=== PATIENT | female | born 1950 | race Caucasian/White ===

== ENCOUNTER 2017-08-29 04:58 | Inpatient (IN) | payer OTHER ==
[2017-07-29 10:47] VITALS: BMI 26.0
--- NOTE | 2017-07-29 11:03 | PAT Medication Instructions ---
Service Date Jul 29, 2017. Current Home Medication List Hydrocodone-Acetaminophen (Hydrocodone Bitartrate/AC 10-325 mg), 1 TAB PO Q4H PRN for RN Losartan Potassium (Cozaar), 50 MG PO QPM Medication Instructions For Your Scheduled Surgery - Take the following medications the morning of surgery with a sip of water: Hydrocodone-Acetaminophen (Hydrocodone Bitartrate/AC 10-325 mg), 1 TAB PO Q4H PRN (if needed, can be taken up to four hours before surgery) - Take the following medications as scheduled the night before surgery: Hydrocodone-Acetaminophen (Hydrocodone Bitartrate/AC 10-325 mg), 1 TAB PO Q4H PRN (if needed) Losartan Potassium (Cozaar), 50 MG PO QPM If you have any questions please call us at [phone] or [phone] or [phone]
--- NOTE | 2017-07-29 11:51 | DIAGNOSTIC IMAGING REPORT ---
CHEST 2 VIEWS ROUTINE CLINICAL HISTORY: Preoperative chest COMPARISON STUDY: No previous studies for comparison. FINDINGS: The cardiac and mediastinal contours are normal. There is no evidence of focal pulmonary consolidation. There is no evidence of failure. No pleural effusions are visualized.[ A lobulated retroxiphoid opacity on the lateral view is felt to represent a summation IMPRESSION: No active disease in the chest. Electronically signed by: Angel Lim M.D. 07/29/2017 11:50 AM Dictated Date/Time: 07/29/2017 11:49 AM
[2017-07-29 12:06] LABS: BASO % 0.5 %; BASO ABS # 0.06 K/uL (0-0.2); EOS % 2.2 %; EOS ABS # 0.26 K/uL (0-0.5); HEMOGLOBIN 13.9 g/dL (12.0-16.0); IG# 0.03 K/uL (0.00-0.02); LYMPH % 30.1 %; MEAN CELL VOLUME 96.1 fL (80-100); MEAN CORPUSCULAR HEMOGLOBIN 31.8 pg (25-34); MEAN CORPUSCULAR HGB CONC 33.1 g/dl (32-36); MEAN PLATELET VOLUME 9.3 fL (7.4-10.4); MONO % 7.1 %; MONO ABS # 0.85 K/uL (0.11-0.59); NEUT % 59.8 %; NEUT ABS # 7.16 K/uL (1.4-6.5); PLATELET COUNT 345 K/uL (130-400); RED CELL DISTRIBUTION WIDTH CV 13.6 % (11.5-14.5); RED CELL DISTRIBUTION WIDTH SD 48.2 fL (36.4-46.3); WHITE BLOOD COUNT 11.96 K/uL (4.8-10.8)
[2017-07-29 12:27] LABS: PTT PATIENT 25.4 SECONDS (21.0-31.0)
--- NOTE | 2017-08-28 06:55 | HISTORY & PHYSICAL EXAMINATION ---
DATE OF ADMISSION: 08/29/2017 CHIEF COMPLAINT: Primary osteoarthritis of the left hip. HISTORY OF PRESENT ILLNESS: Antonia is a pleasant 66-year-old female who has been having a several year history of left hip pain. X-rays and clinical examination have been diagnostic for primary osteoarthritis of the left hip. She has failed extensive conservative treatment including multiple injections and over the counter anti-inflammatories. She has elected to proceed with an anterior left total hip arthroplasty. PAST MEDICAL HISTORY: Significant for hypertension and osteoarthritis. PAST SURGICAL HISTORY: Denies. ALLERGIES: None. CURRENT MEDICATIONS: Include losartan and hydrocodone. FAMILY HISTORY: Significant for heart disease. SOCIAL HISTORY: She is . Never drinks. Denies any tobacco, alcohol or IV drug use. She has 4 kids. REVIEW OF SYSTEMS: She complains of left hip pain. All other pertinent review of systems are negative. PHYSICAL EXAMINATION: GENERAL: She is awake, alert and orient x3. She is in no apparent distress. She is very pleasant. HEENT: Pupils are equal, round, reactive to light. Extraocular movements are intact. Oral mucosa is pink and moist. HEART: The heart is regular rate per radial pulse. LUNGS: Symmetrically bilaterally with no audible breath sounds. ABDOMEN: Soft, nontender, nondistended. MUSCULOSKELETAL: On physical examination of her hip, she ambulates independently. Her leg lengths are essentially equal. She has active dorsiflexion and plantarflexion of her ankle. She has very limited range of motion with flexion at 90 degrees, 10 degrees of internal rotation and 20 degrees of external rotation. She has significant reproducible groin pain at end ranges of motion. IMAGING: X-rays of the right hip do show advanced osteoarthritis with complete joint space collapse. There is sclerotic changes over the acetabulum. There is bone on bone arthritis and osteophyte formation. IMPRESSION: Primary osteoarthritis of the left hip. PLAN: We will proceed with an anterior left total hip arthroplasty. Postoperatively, she will be started on aspirin for DVT prophylaxis and kept overnight in the hospital for postop medical management.
[2017-08-29] VITALS (10 sets, daily range): BP systolic 132–183; BP diastolic 78–94; PULSE 59–87; TEMP 36.3–37; O2SAT 92–100; Ht 144.8 cm; Wt 55.7 kg
[~2017-08-29] VITALS: Ht 144.8 cm; Wt 55.7 kg
[~2017-08-29 04:58] MED LIST: HYDR-5806 PO; LOSA50TA6 PO
[2017-08-29] MEDS ORDERED: LACTATED RINGER'S 1000ML 500 ML IV SCH (06:00)
[2017-08-29] MEDS ORDERED: CEFAZOLIN 2000MG IV PUSH 15 ML IV SCH (06:00)
[2017-08-29] MEDS ORDERED: FAMOTIDINE 20 MG TAB PO SCH (06:00)
[2017-08-29] MEDS ORDERED: ACETAMINOPHEN 500 MG TAB PO SCH (06:00)
[2017-08-29] MEDS ORDERED: LACTATED RINGER'S 1000ML 1,000 ML IV SCH ×2 (06:00)
[2017-08-29] MEDS ORDERED: ROPIVACAINE 5MG/ML 30 ML 150 MG, BUPIVACAINE 0.5% MPF INJ 30 ML, EpINEphrine HCL INJ 0.... INFIL SCH ×8 (06:00)
[2017-08-29] MEDS ORDERED: GABAPENTIN 300 MG CAP PO SCH (06:00)
[2017-08-29] MEDS ORDERED: BACITRACIN 50000 UNIT VIAL ONE (06:27)
[2017-08-29] MEDS ORDERED: ORTHO JOINT ANESTHETIC ONE (06:27)
[2017-08-29] MEDS ORDERED: BUPIVACAINE 0.5 % 5 MG/1 ML PF 10ML VIAL ONE (06:29)
[2017-08-29] MEDS: TRANEXAMIC ACID INJ 1,000 MG x 2 Bags IV SCH ×4 (06:30→06:43)
[2017-08-29] MEDS ORDERED: MIDAZOLAM HCL 1 MG/ML 2ML VIAL ONE (06:37)
--- NOTE | 2017-08-29 06:53 | History & Physical Bridge Note ---
H&P Re-Evaluation Bridge Note: I have examined the patient, reviewed the History & Physical and in the interval since the performance of the History & Physical I have noted the following changes of clinical significance: No changes noted
[2017-08-29] MEDS ORDERED: PHENYLEPHRINE 100MCG/ML 5ML SYR IV PRN (07:00)
[2017-08-29] MEDS ORDERED: ONDANSETRON INJ 2 MG/ML 2 ML VIAL IV PRN ×2 (07:00→09:15)
[2017-08-29] MEDS ORDERED: EpHEDrine SULFATE INJ 50 MG/ML AMP IV PRN (07:00)
[2017-08-29] MEDS ORDERED: PROMETHAZINE HCL INJ 12.5 MG in SODIUM CHLORIDE 0.9% 50ML 50 ML IV PRN (07:00)
[2017-08-29] MEDS ORDERED: HYDROmorphone INJ 1 MG/ML SYR IV PRN (07:00)
[2017-08-29] MEDS ORDERED: ATROPINE SULFATE 0.1 MG/ML 5ML SYR IV PRN (07:00)
[2017-08-29] MEDS ORDERED: FENTANYL CITRATE INJ 50 MCG/1 ML 2 ML VIAL IV PRN (07:00)
[2017-08-29] MEDS ORDERED: PROPOFOL IV EMULSION 10 MG/ML 20 ML VIAL IV ONE (07:09)
[2017-08-29] MEDS ORDERED: ONDANSETRON INJ 2 MG/ML 2 ML VIAL ONE (08:50)
[2017-08-29] MEDS ORDERED: FENTANYL CITRATE INJ 50 MCG/1 ML 2 ML VIAL ONE (08:56)
--- NOTE | 2017-08-29 09:13 | [facility] Post Operative Brief Note ---
Immediate Operative Summary Operative Date Aug 29, 2017. Pre-Operative Diagnosis Primary Osteoarthritis of Left Hip Post-Operative Diagnosis Primary Osteoarthritis of Left Hip Procedure(s) Performed Left Anterior Total Hip Arthroplasty, Uncemented Surgeon Dr. Gotti Feeder Worker Power Unit Operator Surgeon(s) Lucio Cummins PA-C Estimated Blood Loss 150cc Findings Consistent with Post-Op Diagnosis Specimens A: Left femoral head Drains None Anesthesia Type General Complication(s) none Disposition Disposition: Recovery Room / PACU
[2017-08-29] MEDS ORDERED: SOD PHOSPHATE/SOD BIPHOSPHATE ENEMA 132 ML BTL PR PRN (09:15)
[2017-08-29] MEDS ORDERED: BISACODYL 10 MG SUPP PR PRN (09:15)
[2017-08-29] MEDS ORDERED: MAGNESIUM HYDROXIDE SUSP 30 ML UDC PO PRN (09:15)
[2017-08-29] MEDS ORDERED: METOCLOPRAMIDE HCL INJ 5 MG/ML 2 ML VIAL IV PRN (09:15)
--- NOTE | 2017-08-29 09:30 | DIAGNOSTIC IMAGING REPORT ---
L HIP UNILATERAL 1 VIEW CLINICAL HISTORY: LT ANTERIOR TOTAL COMPARISON STUDY: None. FINDINGS: Total fluoroscopy time was 41 seconds. 2 intraoperative fluoroscopic spot images of the left hip. Initial images demonstrate the acetabular cup in good position. The second image demonstrates a left total hip arthroplasty. The hardware appears intact. No fracture or dislocation. IMPRESSION: Fluoroscopy provided for left total hip arthroplasty. The hardware appears intact. Electronically signed by: Grabiel Woodard M.D. 08/29/2017 9:28 AM Dictated Date/Time: 08/29/2017 9:28 AM
--- NOTE | 2017-08-29 09:50 | DIAGNOSTIC IMAGING REPORT ---
L PELVIS/UNILATERAL HIP 1 VIEW HISTORY: 66 years-old Female IN PACU - A/P PELVIS and LATERAL HIP INCLUDING ALL OF IMPLANT status post left hip arthroplasty. Degenerative disease of the left hip COMPARISON: Left hip radiographs 08/29/2017 TECHNIQUE: Portable AP view of the pelvis with frog-leg view of the left hip FINDINGS: Postoperative changes from left hip total joint arthroplasty. Alignment is satisfactory. No periprosthetic fracture or retained foreign body identified. Linear lucency projecting over the lesser trochanter is likely secondary to overlying soft tissue. Expected postsurgical soft tissue swelling and deep tissue air about the left hip with skin calderon and surgical drain. Moderate degenerative changes are seen in involving the right hip. There is a circular device overlying the central pelvis. IMPRESSION: Left hip total joint arthroplasty with satisfactory alignment. The above report was generated using voice recognition software. It may contain grammatical, syntax or spelling errors. Electronically signed by: Aldair Chester M.D. 08/29/2017 9:49 AM Dictated Date/Time: 08/29/2017 9:47 AM
--- NOTE | 2017-08-29 09:52 | OPERATIVE REPORT ---
DATE OF OPERATION: 08/29/2017 PREOPERATIVE DIAGNOSIS: Primary osteoarthritis of the left hip. POSTOPERATIVE DIAGNOSIS: Same. PROCEDURE: Left total hip arthroplasty. SURGEON: Domo Gotti DO. INSULATION POWER UNIT TENDER: Lucio Cummins PA-C whose assistance was necessary for retraction and closure. ANESTHESIA: Spinal, which was ineffective, then converted to a general. COMPLICATIONS: None. CONDITION: Stable to PACU. IMPLANTS USED: I used a [employer] Taperloc total hip arthroplasty system with a size 5 high offset Taperloc stem, a 46 mm G7 cup, E1 poly liner and a size 32 ceramic head with a -6 neck. INDICATIONS: Antonia is a pleasant 66-year-old female who presented to my office with chronic left hip and groin pain. X-rays and clinical examination were diagnostic for primary osteoarthritis of the left hip. After failing conservative treatment, she elected to undergo a left total hip arthroplasty. OPERATION AND FINDINGS: On 08/29/2017, she arrived at [facility] for the above procedure. She was seen in the preoperative holding and the operative extremity was identified and signed. She was given a preoperative antibiotic and a spinal anesthetic. She was taken back to the operating room, laid on the table in supine position and put under basic sedation. The left hip was then prepped and draped in sterile fashion. Time-out was done. The patient and operative extremity was properly identified. Upon incision, the patient was moving a little bit, so they converted her to a general. An anterior approach was used. Dissection was taken down through the fascia and the tensor muscle belly was retracted laterally and the rectus was retracted medially. Circumflex vessels were ligated. An Robert O ring retractor was placed. The capsule was then released and tagged for later repair. The femoral neck was exposed. The femoral neck was then resected with an oscillating saw and the head was removed. Time was then spent doing a complete circumferential labral release. Sequential reaming of the acetabulum up to a size 45 reamer was done. Reaming was done under fluoroscopy to ensure appropriate version. A size 46 mm G7 cup was then impacted into place. I was able to get an excellent press fit. No screws were placed. The manhole cover was placed and the E1 neutral poly liner was snapped into place. The proximal femur was then exposed. Sequential broaching up to a size 5 broach was done. I placed a 32 head and a -6 neck for a trial. The hip was reduced. I was happy with the overall alignment and sizing of the complements. The hip was then dislocated. The final size 5 Taperloc high offset stem was then impacted into place. A 32 mm ceramic head and a -6 neck was then impacted. The hip was then reduced. Final fluoroscopic images showed anatomic alignment of the hip. Surrounding soft tissues were injected with 100 mL of orthopedic pain control cocktail. The wound was then irrigated with 3 liters of normal saline solution with bacitracin. The capsule was then closed with #1 Vicryl suture. Fascia was closed with #1 PDS. Skin was closed with 2-0 Vicryl and calderon. A Prevena VAC dressing was placed. She was then extubated, transferred to a hospital bed and taken to the post anesthesia care unit in stable condition. She tolerated the procedure well. I attest to the content of the Intraoperative Record and any orders documented therein. Any exception s are noted below.
--- NOTE | 2017-08-29 10:09 | Anesthesiology Progress Note ---
Anesthesia Post Op Note Date & Time Aug 29, 2017 at 10:09 Vital Signs Pain Intensity: 0 Vital Signs Past 12 Hours Date Time Temp Pulse Resp B/P (MAP) Pulse Ox O2 Delivery O2 Flow Rate FiO2 08/29/17 10:05 64 14 148/80 99 Nasal Cannula 2 08/29/17 09:55 36.0 69 17 150/79 99 Nasal Cannula 2 08/29/17 09:45 76 17 144/73 98 Nasal Cannula 2 08/29/17 09:35 72 12 147/54 100 Oxymask 10 08/29/17 09:25 66 12 112/66 98 Oxymask 10 08/29/17 09:16 36.2 70 16 117/69 98 Oxymask 10 08/29/17 05:15 36.7 78 20 183/94 95 Room Air Notes Mental Status: alert / awake / arousable, participated in evaluation Pt Amnestic to Procedure: Yes Nausea / Vomiting: adequately controlled Pain: adequately controlled Airway Patency, RR, SpO2: stable & adequate BP & HR: stable & adequate Hydration State: stable & adequate Neuraxial Anesthesia: was administered, sensory block is resolving Anesthetic Complications: no major complications apparent
[2017-08-29] MEDS ORDERED: PHENYLEPHRINE 100MCG/ML 5ML SYR ONE (10:18)
[2017-08-29] MEDS: KETOROLAC TROMETHAMINE 15 MG/ML VIAL IV. SCH ×2 (12:40→17:30)
[2017-08-29] MEDS: CEFAZOLIN IV 1,000 MG in SYRINGE 0 ML IV SCH ×2 (14:02→21:25)
[2017-08-29] MEDS: SODIUM CHLORIDE 0.9% 1000ML 1,000 ML IV SCH (14:32)
[2017-08-29] MEDS: LOSARTAN POTASSIUM 50 MG TAB PO SCH (20:28)
[2017-08-29] MEDS: DOCUSATE SODIUM 100 MG CAP PO SCH (20:28)
[2017-08-29] MEDS: SENNA 8.6 MG TAB PO SCH (20:28)
[2017-08-29] MEDS: ASPIRIN 325 MG ECTAB PO SCH (20:28)
[2017-08-29] MEDS ORDERED: NURSING VERBAL MED ORDER ONE (21:15)
[2017-08-30] VITALS: BP 173/79; PULSE 92
[2017-08-30] MEDS: KETOROLAC TROMETHAMINE 15 MG/ML VIAL IV. SCH ×5 (00:04→23:36)
[2017-08-30] MEDS: SODIUM CHLORIDE 0.9% 1000ML 1,000 ML IV SCH ×2 (00:05→10:30)
[2017-08-30 03:10] VITALS: BP_SYST 100; BP_SYST 158; BP_DIAS 63; BP_DIAS 81; PULSE 75; PULSE 96; TEMP 36.5; TEMP 36.6; O2SAT 95
[2017-08-30 06:15] LABS: BASO % 0.1 %; BASO ABS # 0.01 K/uL (0-0.2); HEMATOCRIT 37.8 % (37-47); HEMOGLOBIN 12.5 g/dL (12.0-16.0); IG# 0.04 K/uL (0.00-0.02); LYMPH % 10.8 %; LYMPH ABS # 2.09 K/uL (1.2-3.4); MEAN CELL VOLUME 94.3 fL (80-100); MEAN CORPUSCULAR HEMOGLOBIN 31.2 pg (25-34); MEAN CORPUSCULAR HGB CONC 33.1 g/dl (32-36); MEAN PLATELET VOLUME 9.1 fL (7.4-10.4); MONO % 8.9 %; MONO ABS # 1.73 K/uL (0.11-0.59); NEUT ABS # 15.48 K/uL (1.4-6.5); PLATELET COUNT 303 K/uL (130-400); RED CELL DISTRIBUTION WIDTH SD 45.6 fL (36.4-46.3); WHITE BLOOD COUNT 19.35 K/uL (4.8-10.8)
[2017-08-30 06:49] LABS: CALCIUM 8.9 mg/dl (8.5-10.1); CREATININE 0.68 mg/dl (0.60-1.20); POTASSIUM 3.3 mmol/L (3.5-5.1)
[2017-08-30 08:04] VITALS: BP 170/92; PULSE 94; TEMP 36.7; O2SAT 94
[2017-08-30] MEDS: ASPIRIN 325 MG ECTAB PO SCH ×2 (08:27→20:30)
[2017-08-30] MEDS: HYDROCODONE/ACETAMIN 5/325MG TAB PO PRN ×4 (08:27→20:05)
[2017-08-30] MEDS: DOCUSATE SODIUM 100 MG CAP PO SCH ×2 (08:28→20:30)
[2017-08-30] MEDS: MULTIVITAMIN TAB PO SCH (08:28)
[2017-08-30 09:47] VITALS: BP 156/81
--- NOTE | 2017-08-30 11:04 | PROGRESS NOTE ---
DATE: 08/30/2017 CHIEF COMPLAINT: Status post left total hip arthroplasty postop day #1. PROGRESS: Antonia was seen and examined at bedside today. Overall, she is doing very well. She has very little pain or soreness in her hip. She is happy with the progress to this point and has no complaints. PHYSICAL EXAMINATION: LEFT HIP: The Prevena VAC dressing is intact and to suction. Her leg lengths are equal. She has active dorsiflexion and plantarflexion of her left ankle. She can actively extend her knee. LABORATORY DATA: She has an H&H today of 12.5 and 37.8. Her glucose is 129. Her vital signs are all stable on room air. She is a little hypertensive. She is voiding on her own and has already had a bowel movement. X-rays postoperatively of the left hip show the prosthesis to be in anatomic alignment without any evidence of fracture, dislocation or loosening. IMPRESSION: Status post left total hip arthroplasty postop day #1. PLAN: At this point, she is doing well. She will be seen by physical therapy for ambulation today. We will keep her on oxycodone for pain control and she is on aspirin for DVT prophylaxis. I will see her tomorrow morning. If everything is doing well, we will discharge her to home.
[2017-08-30 15:41] VITALS: BP 149/85; PULSE 75; TEMP 36.7; O2SAT 96
[2017-08-30] MEDS: SENNA 8.6 MG TAB PO SCH (20:30)
[2017-08-30] MEDS: LOSARTAN POTASSIUM 50 MG TAB PO SCH (20:31)
[2017-08-30 22:56] VITALS: BP 146/85; PULSE 87; TEMP 36.8; O2SAT 95
[2017-08-31] MEDS: KETOROLAC TROMETHAMINE 15 MG/ML VIAL IV. SCH (05:24)
[2017-08-31 06:51] VITALS: BP 152/83; PULSE 87; TEMP 36.7; O2SAT 98
[2017-08-31] MEDS: MULTIVITAMIN TAB PO SCH (08:28)
[2017-08-31] MEDS: ASPIRIN 325 MG ECTAB PO SCH (08:28)
[2017-08-31] MEDS: DOCUSATE SODIUM 100 MG CAP PO SCH (08:28)
[2017-08-31] MEDS: HYDROCODONE/ACETAMIN 5/325MG TAB PO PRN (09:14)
[2017-08-31] MEDS ORDERED: HYDR-5688 PO (09:45)
[2017-08-31] MEDS ORDERED: ASPEC325 PO (09:45)
--- NOTE | 2017-08-31 09:46 | Discharge Instructions ---
Discharge Instructions Date of Service Aug 31, 2017. Admission Reason for Admission: Left Hip Degenerative Joint Disease Discharge Discharge Diagnosis / Problem: Left Total Hip Discharge Goals Goal(s): Decrease discomfort, Improve function Activity Recommendations Activity Limitations: as noted below . Instructions / Follow-Up Instructions / Follow-Up Activity and Therapy Recommendations: * If you are using [facility] then Physical Therapy will be provided until they feel you are ready to start Outpatient Physical Therapy. If you are not using a Home Health agency then Outpatient Physical Therapy should start about 3-5 days from your day of surgery. Therapy will last about 3-6 weeks * You were shown a series of exercises in the hospital. Do these exercises three times each day including the exercises you were shown in physical therapy. * Get up and walk several times each day.~ For the first four weeks, try not to stand or walk for more than one hour at a time. If you do stand or walk for more than one hour, you will not hurt anything, but your leg will likely swell.~ ~ * As you feel comfortable, you may change from the walker or crutches to a cane and~then to independent walking. Medications: * Narcotic You will likely be sent home from the hospital with a prescription for the narcotic pain medication that worked best throughout your stay. * Aspirin Most patients will be required to take Aspirin 325mg twice a day for 6 weeks after surgery. This is obtained [id number] and a prescription is not necessary. * Other medications may be prescribed for specific circumstances. If you have any questions, please call the office at . * Resume previous home medications unless otherwise instructed TEDs/Elastic Stockings: The white elastic stockings help limit swelling and prevent blood clots from forming in your legs. The more you wear them, the more they work. Wear them for six weeks. Dressing Care: You will likely have a purple VAC dressing after surgery. This dressing will keep the incision dry and promote early healing. After about 8 days the batteries will wear out and the VAC will lose suction. Simply remove the dressing at that time and throw everything away, including the small suction machine. Then, you may leave the calderon open to air or cover them with a dry dressing so they do not rub on your pants. The calderon will be removed at your 2 week follow-up appointment. Showering: You may shower immediately with the purple VAC dressing. Let the shower spray hit your opposite side and slowly pat the plastic dry. Do not soak the dressing. After the dressing is removed you may shower normally with the calderon exposed. Let soapy water run over the calderon and pat them dry. Things To Watch For: * Drainage from the incision site that occurs more than one week after your surgery. * Increased redness at the incision site. * Fever above 102 degrees Fahrenheit. * Unusual chest pain or shortness of breath. * Call [facility] at with any of the above problems Follow-Up Visit: Follow-up with Dr. Gotti 2 weeks after your day of surgery. An appointment was probably scheduled when you signed-up for surgery in the office. If you have any questions call Office Instructions: More detailed instructions as well as Frequently Asked Questions were provided in a folder by our office when you signed-up for surgery. Please review these instructions when you get home. If you have any further questions or concerns, please feel free to call the office at [phone] Current Hospital Diet Patient's current hospital diet: Regular Diet Discharge Diet Recommended Diet: Regular Diet Procedures Procedures Performed: Left Anterior Total Hip Arthroplasty, Uncemented Pending Studies Studies pending at discharge: no Medical Emergencies . Who to Call and When: Medical Emergencies: If at any time you feel your situation is an emergency, please call [phone] immediately. . Non-Emergent Contact Non-Emergency issues call your: Surgeon Call Non-Emergent contact if: wound has increased drainage, wound has increased redness . "Provider Documentation" section prepared by Domo Gotti. .
--- NOTE | 2017-08-31 10:02 | PROGRESS NOTE ---
DATE: 08/31/2017 CHIEF COMPLAINT: Status post left total hip arthroplasty postop day #2. PROGRESS: Antonia is a pleasant 66-year-old female who is now 2 days status post left total hip arthroplasty. Overall, she is doing very well. She was up and ambulating well yesterday with physical therapy. She has minimal pain in her hip. She has no complaints. PHYSICAL EXAMINATION: LEFT HIP: The Prevena VAC dressing is to suction. Her leg lengths are equal. She is neurovascularly intact. VITAL SIGNS: Stable on room air. She is still a little bit hypertensive. She is voiding on her own and has already had a bowel movement. IMPRESSION: Status post left total hip arthroplasty postop day #2. PLAN: At this point, she is doing well and happy with her progress. She will be seen by physical therapy again this morning and we will discharge her to home later this morning with [facility].
--- NOTE | 2017-08-31 10:31 | DISCHARGE SUMMARY ---
DISCHARGE DIAGNOSIS: Primary osteoarthritis of the left hip. PROCEDURE: Left total hip arthroplasty on 08/29/[address] Domo Gotti. DISCHARGE INSTRUCTIONS: 1. Aspirin 325 mg twice a day for 6 weeks. 2. ANGIE hose stockings for 6 weeks. 3. [place] 5/325 one or two tabs every 6 hours as needed for pain. 4. Cozaar 50 mg daily. 5. Follow up with Dr. Gotti in 2 weeks. 6. Call the office of Dr. Gotti with any questions or concerns. HOSPITAL COURSE: Antonia is a pleasant 66-year-old female, who presented to my office with chronic left hip and groin pain. X-rays and clinical examination were diagnostic for primary osteoarthritis of the left hip. After failing conservative treatment, she elected to undergo a left total hip arthroplasty. On 08/29/2017, she arrived to the [facility] and underwent a left hip replacement without complications. Postoperatively, she was started on aspirin for DVT prophylaxis and discharged to general orthopedic floor. Her hospital course was uneventful. On postop day #1, her H&H was stable at 12.5 and 37.8. She was up and ambulating well with physical therapy. Her pain was relatively well controlled. On postop day #2, she continued to do well. She worked well with physical therapy and her pain was well controlled. She was subsequently discharged to home with [facility] and the above instructions.
[2017-08-31 10:47] VITALS: BP 152/83; PULSE 87; TEMP 36.7; O2SAT 98
== END 2017-08-31 12:34 | disposition home health service (06) | DRG 470 ==
LOC: C.ACU 04:58 → C.3E 06:30 → ENRESERV 09:56
PROVIDERS: ADMIT Orthopaedic Surgery; ATTEND Orthopaedic Surgery
PROC: 0SRB03A Replacement of Left Hip Joint with Ceramic Synthetic Substitute, Uncemented, Open Approach (ICD-10-PCS; principal; 2017-08-29 07:00)
DX: M16.12 Unilateral primary osteoarthritis, left hip (principal); I10 Essential (primary) hypertension; Z79.899 Other long term (current) drug therapy